=== PATIENT | male | born 1995 | race Caucasian/White ===

== ENCOUNTER 2016-11-03 08:26 | Emergency (ER) | payer BC ==
[2016-11-03 08:44] VITALS: TEMP 97.7; O2SAT 94
[2016-11-03] MEDS ORDERED: methylPREDNISolone ACETATE 80 MG/ML VIAL IM ONE (08:45)
--- NOTE | 2016-11-03 08:47 | ED.PDOC ---
History of Present Illness - General Chief Complaint: Allergic Reaction Stated Complaint: WASP STING Time Seen by Provider: 11/03/16 08:44 Source: patient, family Exam Limitations: no limitations - History of Present Illness Initial Comments: STUNG IN L EAR HELIX BY WASP OR YELLOW JACKET 1 HR AGO. TOOK BENADRYL PO. NO SOB. C/O RASH, ITCHING IN BUE AND BLE, NECK. Timing/Duration: 1 hour Severity: moderate Improving Factors: medication Worsening Factors: nothing Associated Symptoms: rash Allergies/Adverse Reactions: Allergies NO KNOWN ALLERGY Allergy (Verified 11/03/16 08:44) Home Medications: Ambulatory Orders methylPREDNISolone TAB [Medrol Tab] 4 mg PO DAILY #1 tab 11/03/16 Review of Systems - Review of Systems Constitutional: Denies: fever, malaise, weakness EENTM: Denies: eye pain, ear discharge, throat pain, throat swelling, mouth pain , mouth swelling Respiratory: Denies: cough, short of breath, wheezing Cardiology: Denies: chest pain, palpitations Gastrointestinal/Abdominal: States: no symptoms reported Genitourinary: States: no symptoms reported Musculoskeletal: States: no symptoms reported Skin: States: lumps, rash Neurological: States: no symptoms reported Endocrine: States: no symptoms reported Hematologic/Lymphatic: States: no symptoms reported All other Systems: Reviewed and Negative Past Medical History (General) - Patient Medical History Hx Seizures: No Hx Stroke: No Hx Asthma: No Hx of COPD: No Hx Cardiac Disorders: No Hx Hypertension: No Hx Thyroid Disease: No Hx Diabetes: No Hx Gastroesophageal Reflux: No Surgical History: no surgical history Family Medical History - Family History Mother Family History: No Known Physical Exam - Physical Exam General Appearance: Alert, No apparent distress Eye Exam: bilateral normal Ears, Nose, Throat: hearing grossly normal, normal ENT inspection, normal pharynx Neck: non-tender, supple Respiratory: chest non-tender, lungs clear, normal breath sounds, no respiratory distress, no accessory muscle use Cardiovascular/Chest: normal peripheral pulses, regular rate, rhythm Gastrointestinal/Abdominal: normal bowel sounds, non tender, soft Back Exam: no CVA tenderness Extremity: normal range of motion, non-tender Neurologic: alert, oriented x 3 Skin Exam: other - SMALL ERYTHEMATOUS WHEALS ON SUPERIOR BACK, BUE AND BLE. LOWER BACK, CHEST, ABD CLEAR. FACE AND MOUTH CLEAR, EXCEPT L EAR SLIGHTLY ERYTHEMATOUS SINCE IT WAS THE STING LOCATION. , rash Lymphatic: no adenopathy Progress - Progress Progress: 11/03/16 08:50 ALLERGIC DERMATITIS REACTION TO WASP. NO ANAPHYLAXIS. PT TOOK APPROPRIATE BENADRYL THUS JUST GIVING STEROID SHOT AND MEDROL DOSE PACK. INSTRUCTED TO CONTINUE USING BENADRYL UNTIL RESOLUTION. GAVE RETURN PRECAUTIONS SHOULD ANY DYSPNEA DEVELOP. Departure - Departure Clinical Impression: Insect stings, Allergic dermatitis Disposition: Discharge to Home or Self Care Condition: Good Departure Forms: ED Discharge - Pt. Copy, Patient Portal Self Enrollment Instructions: DI for Insect Bites and Stings Diet: resume usual diet Activity: increase activity as tolerated Referrals: Kranthi Martinez III, MD [Primary Care Provider] - 1-2 Weeks Prescriptions: methylPREDNISolone TAB [Medrol Tab] 4 mg PO DAILY #1 tab Home Medications: Ambulatory Orders methylPREDNISolone TAB [Medrol Tab] 4 mg PO DAILY #1 tab 11/03/16
[2016-11-03 09:29] VITALS: BP 157/70
== END 2016-11-03 09:20 | disposition home or self-care (01) ==
LOC: ER 08:26
DX: T63.441A Toxic effect of venom of bees, accidental (unintentional), initial encounter (principal); L23.89 Allergic contact dermatitis due to other agents; Y92.9 Unspecified place or not applicable